=== PATIENT | female | born 1935 ===

== ENCOUNTER 2017-04-25 12:03 | Inpatient (IN) | payer MEDICARE, OTHER ==
[2017-04-25] MEDS ORDERED: Sodium Chloride 0.9% 1,000 ML IV STA (12:23)
--- NOTE | 2017-04-25 12:35 | ED PDOC ---
HPI: Abdomen Time Seen by Provider: 04/25/17 12:16 Chief Complaint (Nursing): Abdominal Pain Chief Complaint (Provider): Abdominal pain History Per: Patient History/Exam Limitations: no limitations Onset/Duration Of Symptoms: Intermittent Episodes, Worse Since (3 days) Current Symptoms Are (Timing): Still Present Location Of Pain/Discomfort: RUQ Associated Symptoms: denies: Fever, Vomiting, Diarrhea, Chest Pain Additional History Per: Patient Additional Complaint(s): 81yo female, with history of hypertension, diabetes, parkinsons disease, colon cancer, arthritis, depression, presents to ED with complaints of right upper quadrant pain, ongoing intermittently for the past several months but worse over the last several days. Patient states she has a history of galbladder problems however she has not had any interventions. She denies any vomiting, diarrhea, fever, changes in skin color, cough, shortness of breath or dizziness. She has no other medical complaints. Past Medical History Reviewed: Historical Data, Nursing Documentation, Vital Signs Vital Signs: Last Vital Signs Temp 98.8 F 04/27/17 07:49 Pulse 68 04/27/17 07:49 Resp 19 04/27/17 07:49 BP 158/68 H 04/27/17 07:49 Pulse Ox 96 04/27/17 07:49 - Medical History PMH: Anxiety, Arthritis (R knee), Back Problems, Dementia, Depression, Diabetes (type II), HTN, Hypercholesterolemia, Osteoporosis, Parkinson's Disease Denies: HIV, Chronic Kidney Disease - Surgical History Surgical History: Appendectomy Other surgeries: partial colectomy, ovarian cyst removal - Family History Family History: States: Unknown Family Hx - Home Medications Home Medications: Ambulatory Orders Medication Instructions Recorded Carbidopa/Levodopa 25/100 mg 1 tab PO TID 07/08/15 [Sinemet] Donepezil [Aricept] 10 mg PO DAILY 07/08/15 Escitalopram [Lexapro] 10 mg PO DAILY 07/08/15 clonazePAM [Klonopin] 1 mg PO BID 07/08/15 Sertraline [Zoloft] 50 mg PO HS 10/24/15 Alendronate Sodium 70 mg PO QWK 01/09/16 Diclofenac Sodium [Voltaren] 1 gm TOP TID 01/09/16 Hydrochlorothiazide [Microzide] 12.5 mg PO DAILY 12/02/16 Lubiprostone [Amitiza] 24 mcg PO DAILY 01/09/16 Omeprazole 20 mg PO DAILY 01/09/16 Amoxicillin/Clavulanate [Augmentin 1 tab PO Q12 #10 tab 01/12/16 875 MG-125 MG] Meclizine [Meclizine*] 25 mg PO TID #0 tab 01/12/16 Valsartan [Diovan] 160 mg PO DAILY #0 tab 01/12/16 - Allergies Allergies/Adverse Reactions: Allergies Allergy/AdvReac Type Severity Reaction Status Date / Time No Known Allergies Allergy Verified 04/25/17 12:13 Review of Systems ROS Statement: Except As Marked, All Systems Reviewed And Found Negative Constitutional: Negative for: Fever Respiratory: Negative for: Shortness of Breath Gastrointestinal: Positive for: Abdominal Pain. Negative for: Vomiting, Diarrhea Skin: Negative for: Other (changes in color) Neurological: Negative for: Dizziness Physical Exam - Reviewed Nursing Documentation Reviewed: Yes Vital Signs Reviewed: Yes - Physical Exam Appears: Positive for: Non-toxic (elderly female, dehydrated appearing) Skin: Positive for: Normal Color, Warm Eye Exam: Positive for: Normal appearance Neck: Positive for: Supple Cardiovascular/Chest: Positive for: Regular Rate, Rhythm Respiratory: Positive for: Normal Breath Sounds Gastrointestinal/Abdominal: Positive for: Soft, Tenderness (right upper quadrant ) Back: Positive for: Normal Inspection Extremity: Positive for: Normal ROM Neurologic/Psych: Positive for: Alert, Oriented. Negative for: Motor/Sensory Deficits - Laboratory Results Result Diagrams: 04/26/17 08:36 04/27/17 10:04 - ECG O2 Sat by Pulse Oximetry: 96 (RA) Pulse Ox Interpretation: Normal Medical Decision Making Medical Decision Making: Impression: Workup for right upper quadrant pain Prior notes form 2016 reviewed, revealing a CT scan which showed cholelithiasis with mild dilation of the CBD. Plan: -- Labs -- US Abdomen -- Pain medication -- Gentle IV fluids Scribe Attestation: Documented by Lisa Shipman, acting as a scribe for Gunner Martinez DO. Provider Scribe Attestation: All medical record entries made by the Scribe were at my direction and personally dictated by me. I have reviewed the chart and agree that the record accurately reflects my personal performance of the history, physical exam, medical decision making, and the department course for this patient. I have also personally directed, reviewed, and agree with the discharge instructions and disposition. Disposition - Clinical Impression Clinical Impression: Cholecystitis, Cholelithiasis - Disposition Disposition: Transfer of Care Disposition Time: 19:00 Condition: FAIR Patient Signed Over To: Osmani Stringer Handoff Comments: pending CT/ dispo
[2017-04-25 13:24] LABS: BASO % 0.5 % (0.0-2.0); EOS # 0.3 K/uL (0.0-0.7); EOS % 2.8 % (0.0-4.0); HEMOGLOBIN 13.5 g/dL (12.0-16.0); LYMPH # 1.8 K/uL (1.0-4.3); LYMPH % 17.4 % (20.0-40.0); MEAN CELL VOLUME 96.1 fl (81.0-99.0); MEAN CORPUSCULAR HEMOGLOBIN 33.1 pg (27.0-31.0); MEAN CORPUSCULAR HGB CONC 34.5 g/dL (33.0-37.0); MEAN PLATELET VOLUME 10.1 fl (7.2-11.7); MONO % 9.5 % (0.0-10.0); NEUT # 7.1 K/uL (1.8-7.0); NEUT % 69.8 % (50.0-75.0); NRBC % 0.1 % (0.0-0.0); RBC 4.07 Mil/uL (3.80-5.20); WHITE BLOOD COUNT 10.2 K/uL (4.8-10.8)
[2017-04-25 14:43] LABS: URINE BILIRUBIN NEGATIVE (NEGATIVE); URINE BLOOD NEGATIVE (NEGATIVE); URINE CLARITY SLIGHTY-CLOUDY (Clear); URINE COLOR YELLOW (YELLOW); URINE GLUCOSE (UA) NEG (Normal); URINE LEUKOCYTE ESTERASE NEG Leu/uL (Negative); URINE PROTEIN NEGATIVE (NEGATIVE)
--- NOTE | 2017-04-25 15:02 | US ---
HISTORY: RUQ pain COMPARISON: Abdomen Pelvis CT without contrast 01/09/2016 and limited Abdomen Ultrasound exam 07/08/2015. TECHNIQUE: Sonographic evaluation of the abdomen. FINDINGS: LIVER: Measures 16.1 cm. Normal echogenicity of the liver parenchyma. No mass. No intrahepatic bile duct dilatation. GALLBLADDER: Prominent sludge is seen layering in the dependent gallbladder with underlying lesion not excluded. Pattern is likely increased in the interval. COMMON BILE DUCT: Measures 7.8 mm mm. The proximal CBD is mildly dilated once again with the common hepatic duct measuring 9.2 mm. No choledocholithiasis appreciable. PANCREAS: The tail of the pancreas is obscured by overlying bowel gas with remainder unremarkable. RIGHT KIDNEY: Measures 11.0 x 3.6 x 4.7cm. A large simple cyst is exophytic off the upper midpole right kidney measuring 7.0 x 6.6 x 6.2 cm, slightly larger in the interval. LEFT KIDNEY: Measures 12.7 x 5.2 x 5.2cm. Normal echogenicity. No calculus, mass, or hydronephrosis. SPLEEN: Normal in size and contour. No mass. AORTA: No aneurysmal dilatation. IVC: Unremarkable. OTHER FINDINGS: None. IMPRESSION: Increase layering sludge in the dependent gallbladder with the gallbladder otherwise unremarkable. Underlying lesions are not excluded in the dependent gallbladder. Stable mild prominent common bile duct dilatation. Mild increase in size and simple cysts related to the right kidney. Partial obscuring of the pancreas by overlying bowel gas.
[2017-04-25 15:29] LABS: LIPASE 116 U/L (23-300)
[2017-04-25 16:08] LABS: ALBUMIN 3.7 g/dL (3.5-5.0); ALT/SGPT 33 U/L (9-52); AST/SGOT 75 U/L (14-36); BLOOD UREA NITROGEN 22 mg/dl (7-17); CALCIUM 9.5 mg/dL (8.4-10.2); GFR AFRICAN-AMERICAN > 60; GFR NON-AFRICAN AMERICAN > 60
[2017-04-25] MEDS ORDERED: Iohexol 240 (50 ml) PO ONE (17:22)
[2017-04-25] MEDS ORDERED: Iohexol 240 (50 ml) ONE (17:53)
[2017-04-25] MEDS ORDERED: Sodium Chloride 0.9% 100 ML ONE (19:37)
[2017-04-25] MEDS ORDERED: Iohexol 300 100 ML IJ ONE (19:37)
--- NOTE | 2017-04-25 20:10 | ED PDOC ---
- Laboratory Results Result Diagrams: 04/25/17 13:10 04/25/17 15:06 - ECG O2 Sat by Pulse Oximetry: 96 (RA) Pulse Ox Interpretation: Normal Medical Decision Making Medical Decision Making: Time: 19:00 Patient was signed out to me by Dr. Martinez pending CT and reevaluation. Time: 22:26 EXAM: CT Abdomen and Pelvis With Intravenous Contrast FINDINGS: Lower thorax: The heart is mildly enlarged. There is a hiatal hernia. There is subsegmental atelectasis and scarring at the lung bases. There is dependent atelectasis at the lung bases. There is more focal airspace disease at the left base. There are no effusions there is a granuloma in the right middle lobe ABDOMEN: Liver: There is fatty infiltration of the liver. There is a small hepatic cyst. There additional low-attenuation hepatic lesions too small to accurately characterize. There is a small granuloma in the liver. Gallbladder and bile ducts: Gallbladder is distended, almost 9 cm in length. There are multiple dependent layering stones. Common duct is dilated, 13 mm in diameter. There is mild intrahepatic biliary ductal dilatation Pancreas: Pancreas is mildly atrophic. Pancreatic duct is mildly prominent, 3.7 mm in diameter in the midportion of the pancreas. Spleen: unremarkable Adrenals: There is thickening of the right adrenal. There is nodular thickening of the left adrenal. Kidneys and ureters: There is a right renal cyst. Kidneys and ureters are otherwise unremarkable. Stomach and bowel: Stomach is almost completely empty. There is a duodenal diverticulum. Rotation is normal. There are mildly distended jejunal loops in the left upper quadrant. There is contrast and air throughout the small bowel. There is no small bowel obstruction. Terminal ileum is unremarkable. Appendix is not visualized.There is no pericecal inflammation. There is moderately large amount of stool in the right and transverse colon. There is been partial sigmoid resection. There is a colon anastomosis in the left lower quadrant. There is mild distention at the anastomotic site. There is a fecal bolus in the rectum. Appendix: See stomach and bowel PELVIS: Bladder: unremarkable Reproductive: Uterus and adnexal structures are unremarkable. ABDOMEN and PELVIS: Intraperitoneal space: .There is no free air or free fluid. Bones/joints: Bony structures are osteopenic.There are degenerative changes in the osseus structures. Soft tissues: There is a small fat containing umbilical hernia. There are calcified granulomas in the buttocks. Vasculature: There are vascular calcifications. There are calcified phleboliths. Lymph nodes: There is no pathologic adenopathy. Other findings: . IMPRESSION: Distended gallbladder with multiple stones and dilated intra-and extrahepatic biliary ducts, hepatobiliary scan suggested if there is suspicion for acute cholecystitis; prominent pancreatic duct in the midportion of the pancreas, distal obstructing lesion cannot be excluded; mild cardiomegaly and atherosclerotic disease; probable mild ileus, no obstruction; constipation; prior partial sigmoid resection; fecal impaction Additional nonemergent findings as described above. Time: 22:50 Patient will be admitted for acute chloecystitis . Case was discussed with Dr. Brooklynn MD vocational rehabilitation counselor. Scribe Attestation: Documented by Ten Leary, acting as a scribe for Osmani Stringer MD Provider Scribe Attestation: All medical record entries made by the Scribe were at my direction and personally dictated by me. I have reviewed the chart and agree that the record accurately reflects my personal performance of the history, physical exam, medical decision making, and the department course for this patient. I have also personally directed, reviewed, and agree with the discharge instructions and disposition. Disposition - Clinical Impression Clinical Impression: Cholecystitis, Cholelithiasis - POA Present On Arrival: None - Disposition Disposition: Admitted as In-Patient Disposition Time: 22:50 Condition: FAIR
--- NOTE | 2017-04-25 22:27 | CT ---
EXAM: CT Abdomen and Pelvis With Intravenous Contrast EXAM DATE/TIME: 04/25/2017 5:22 PM CLINICAL HISTORY: 81 years old, female; Pain; Abdominal pain; Flank; Right upper quadrant (ruq); Additional info: Upper abdominal pain TECHNIQUE: Axial computed tomography images of the abdomen and pelvis with intravenous contrast. All CT scans at this facility use one or more dose reduction techniques, viz.: automated exposure control; ma/kV adjustment per patient size (including targeted exams where dose is matched to indication; i.e. head); or iterative reconstruction technique. Coronal and sagittal reformatted images were created and reviewed. CONTRAST: 95 mL of omnipaque administered intravenously. COMPARISON: CT - ABD PELVIS W/O PO OR IV CONT 2016-01-09 15:47 FINDINGS: Lower thorax: The heart is mildly enlarged. There is a hiatal hernia. There is subsegmental atelectasis and scarring at the lung bases. There is dependent atelectasis at the lung bases. There is more focal airspace disease at the left base. There are no effusions there is a granuloma in the right middle lobe ABDOMEN: Liver: There is fatty infiltration of the liver. There is a small hepatic cyst. There additional low-attenuation hepatic lesions too small to accurately characterize. There is a small granuloma in the liver. Gallbladder and bile ducts: Gallbladder is distended, almost 9 cm in length. There are multiple dependent layering stones. Common duct is dilated, 13 mm in diameter. There is mild intrahepatic biliary ductal dilatation Pancreas: Pancreas is mildly atrophic. Pancreatic duct is mildly prominent, 3.7 mm in diameter in the midportion of the pancreas. Spleen: unremarkable Adrenals: There is thickening of the right adrenal. There is nodular thickening of the left adrenal. Kidneys and ureters: There is a right renal cyst. Kidneys and ureters are otherwise unremarkable. Stomach and bowel: Stomach is almost completely empty. There is a duodenal diverticulum. Rotation is normal. There are mildly distended jejunal loops in the left upper quadrant. There is contrast and air throughout the small bowel. There is no small bowel obstruction. Terminal ileum is unremarkable. Appendix is not visualized.There is no pericecal inflammation. There is moderately large amount of stool in the right and transverse colon. There is been partial sigmoid resection. There is a colon anastomosis in the left lower quadrant. There is mild distention at the anastomotic site. There is a fecal bolus in the rectum. Appendix: See stomach and bowel PELVIS: Bladder: unremarkable Reproductive: Uterus and adnexal structures are unremarkable. ABDOMEN and PELVIS: Intraperitoneal space: .There is no free air or free fluid. Bones/joints: Bony structures are osteopenic.There are degenerative changes in the osseus structures. Soft tissues: There is a small fat containing umbilical hernia. There are calcified granulomas in the buttocks. Vasculature: There are vascular calcifications. There are calcified phleboliths. Lymph nodes: There is no pathologic adenopathy. Other findings: . IMPRESSION: Distended gallbladder with multiple stones and dilated intra-and extrahepatic biliary ducts, hepatobiliary scan suggested if there is suspicion for acute cholecystitis; prominent pancreatic duct in the midportion of the pancreas, distal obstructing lesion cannot be excluded; mild cardiomegaly and atherosclerotic disease; probable mild ileus, no obstruction; constipation; prior partial sigmoid resection; fecal impaction Additional nonemergent findings as described above.
[2017-04-25] MEDS ORDERED: Ciprofloxacin 400mg/200ml D5W 400 MG/200 ML BAG IV STA (22:52)
[2017-04-25] MEDS ORDERED: metroNIDAZOLE 500mg/100ml NS 100 ML IVPB STA (22:53)
[2017-04-25] MEDS ORDERED: metroNIDAZOLE 500mg/100ml NS 100 ML IVPB ONE (23:15)
[2017-04-26] MEDS ORDERED: Sodium Chloride 0.9% 500 ML IV SCH (03:30)
--- NOTE | 2017-04-26 06:09 | CP.PCM.CON ---
Addendum entered and electronically signed by Thomas Muñiz DO 04/26/17 09:18: Patient to undergo MRCP - OR tentatively for 04/27 depending on result - Patient will need medical clearance Gian Muñiz PGY2 Original Note: <Tomer Hamilton - Last Filed: 04/26/17 08:03> History of Present Illness - History of Present Illness History of Present Illness: 80yo F with PMHx of colon cancer s/p resection, HTN, DM, Parkinsons presents to [facility] ED with complaints of RUQ pain. The pain began early in the morning and is located mostly in the RUQ. Patient reports feeling nauseous but denies any bouts of emesis. Patient reports eating makes RUQ pain worse. She denies CP, SOB , diarrhea, constipation, urinary symptoms, fever. Patient reports chills. PMHx: as stated above Surgeries: colon resection,ovarian cyst removal, tubal ligation, appendectomy Allergies: none Fam Hx: non-contributory Review of Systems - Review of Systems Review of Systems: 12 pt ROS carried out, unremarkable, except as stated in HPI Past Patient History - Past Medical History & Family History Past Medical History?: Yes - Past Social History Smoking Status: Never Smoked - CARDIAC Hx Cardiac Disorders: Yes Hx Hypercholesterolemia: Yes Hx Hypertension: Yes - PULMONARY Hx Respiratory Disorders: Yes Hx Asthma: Yes - NEUROLOGICAL Hx Neurological Disorder: Yes Hx Parkinson's Disease: Yes - HEENT Hx HEENT Problems: Yes Hx Cataracts: Yes - RENAL Hx Chronic Kidney Disease: No - ENDOCRINE/METABOLIC Hx Endocrine Disorders: Yes - HEMATOLOGICAL/ONCOLOGICAL Hx Blood Disorders: No Hx Human Immunodeficiency Virus (HIV): No - INTEGUMENTARY Hx Dermatological Problems: Yes Hx Psoriasis: Yes - MUSCULOSKELETAL/RHEUMATOLOGICAL Hx Musculoskeletal Disorders: Yes Hx Arthritis: Yes (R knee) Hx Falls: No Hx Osteoporosis: Yes - GASTROINTESTINAL Hx Gastrointestinal Disorders: Yes Hx Constipation: Yes Hx Gastritis: Yes - GENITOURINARY/GYNECOLOGICAL Hx Genitourinary Disorders: Yes Hx Incontinence: Yes - PSYCHIATRIC Hx Psychophysiologic Disorder: Yes Hx Anxiety: Yes Hx Depression: Yes Hx Substance Use: No - SURGICAL HISTORY Hx Surgeries: Yes Hx Appendectomy: Yes Hx Cholecystectomy: Yes - ANESTHESIA Hx Anesthesia: Yes Hx Anesthesia Reactions: No Hx Malignant Hyperthermia: No Meds Allergies/Adverse Reactions: Allergies Allergy/AdvReac Type Severity Reaction Status Date / Time No Known Allergies Allergy Verified 04/25/17 12:13 - Medications Medications: Current Medications Sodium Chloride (Sodium Chloride 0.9%) 500 mls @ 100 mls/hr IV .Q5H ALTHEA Last Admin: 04/26/17 04:23 Dose: Not Given Morphine Sulfate (Morphine) 2 mg IVP Q4 PRN PRN Reason: Pain, severe (8-10) Ondansetron HCl (Zofran Inj) 4 mg IVP Q6 PRN PRN Reason: Nausea/Vomiting Pneumococcal Polyvalent Vaccine (Pneumovax 23 Vaccine) 0.5 ml IM .ONCE ONE Stop: 04/26/17 09:01 Physical Exam - Constitutional Appears: No Acute Distress - Head Exam Head Exam: NORMOCEPHALIC - Eye Exam Eye Exam: Normal appearance - ENT Exam ENT Exam: Mucous Membranes Moist - Respiratory Exam Respiratory Exam: NORMAL BREATHING PATTERN - Cardiovascular Exam Cardiovascular Exam: +S1, +S2 - GI/Abdominal Exam GI & Abdominal Exam: Soft, Tenderness Additional comments: mild RUQ tenderness - Neurological Exam Neurological exam: Alert, Oriented x3 - Psychiatric Exam Psychiatric exam: Normal Mood - Skin Skin Exam: Dry, Intact, Warm Results - Vital Signs Recent Vital Signs: Last Vital Signs Temp 98.5 F 04/26/17 00:25 Pulse 91 H 04/26/17 01:10 Resp 18 04/26/17 01:10 BP 128/73 04/26/17 00:25 Pulse Ox 96 04/26/17 01:10 - Labs Result Diagrams: 04/25/17 13:10 04/25/17 15:06 Labs: Laboratory Results - last 24 hr 04/25/17 04/25/17 04/25/17 13:10 13:35 15:06 WBC 10.2 RBC 4.07 Hgb 13.5 Hct 39.1 MCV 96.1 D MCH 33.1 H MCHC 34.5 RDW 15.0 H Plt Count 298 D MPV 10.1 Neut % (Auto) 69.8 Lymph % (Auto) 17.4 L [place] % (Auto) 9.5 Eos % (Auto) 2.8 Baso % (Auto) 0.5 Neut # (Auto) 7.1 H Lymph # (Auto) 1.8 [place] # (Auto) 1.0 H Eos # (Auto) 0.3 Baso # (Auto) 0.0 Sodium 141 Potassium 4.4 Chloride 104 Carbon Dioxide 26 Anion Gap 15 BUN 22 H Creatinine 0.6 L Est GFR ( Amer) > 60 Est GFR (Non-Af Amer) > 60 Random Glucose 100 Lactic Acid Calcium 9.5 Total Bilirubin 0.4 AST 75 H ALT 33 Alkaline Phosphatase 80 Total Protein 7.4 Albumin 3.7 Globulin 3.7 Albumin/Globulin Ratio 1.0 Lipase 116 Urine Color Yellow Urine Clarity Slighty-cloudy Urine pH 5.0 Ur Specific Miller 1.024 Urine Protein Negative Urine Glucose (UA) Neg Urine Ketones Trace Urine Blood Negative Urine Nitrate Negative Urine Bilirubin Negative Urine Urobilinogen 2.0 H Ur Leukocyte Esterase Neg Urine RBC (Auto) 6 H Urine Microscopic WBC 2 04/25/17 23:56 WBC RBC Hgb Hct MCV MCH MCHC RDW Plt Count MPV Neut % (Auto) Lymph % (Auto) [place] % (Auto) Eos % (Auto) Baso % (Auto) Neut # (Auto) Lymph # (Auto) [place] # (Auto) Eos # (Auto) Baso # (Auto) Sodium Potassium Chloride Carbon Dioxide Anion Gap BUN Creatinine Est GFR ( Amer) Est GFR (Non-Af Amer) Random Glucose Lactic Acid 0.7 Calcium Total Bilirubin AST ALT Alkaline Phosphatase Total Protein Albumin Globulin Albumin/Globulin Ratio Lipase Urine Color Urine Clarity Urine pH Ur Specific Miller Urine Protein Urine Glucose (UA) Urine Ketones Urine Blood Urine Nitrate Urine Bilirubin Urine Urobilinogen Ur Leukocyte Esterase Urine RBC (Auto) Urine Microscopic WBC Assessment & Plan - Assessment and Plan (Free Text) Assessment: 81F w/ biliary colic Plan: NPO IVF Analgesic Anti-emetic F/u MRCP Discussed with Dr. Chelita Tee PGY2 <Alexey Merlos - Last Filed: 04/27/17 21:44> Meds - Medications Medications: Current Medications Carbidopa/Levodopa (Sinemet) 1 tab PO TID [facility] Last Admin: 04/27/17 16:57 Dose: 1 tab Clonazepam (Klonopin) 1 mg PO Q12H [facility] Last Admin: 04/27/17 21:15 Dose: 1 mg Donepezil HCl (Aricept) 10 mg PO DAILY [facility] Last Admin: 04/27/17 11:41 Dose: 10 mg Escitalopram Oxalate (Lexapro) 10 mg PO DAILY [facility] Last Admin: 04/27/17 11:41 Dose: 10 mg Sodium Chloride (Sodium Chloride 0.9%) 500 mls @ 100 mls/hr IV .Q5H [facility] Last Admin: 04/26/17 04:23 Dose: Not Given Ciprofloxacin (Cipro 400mg/200ml Dsw) 400 mg in 200 mls @ 200 mls/hr IVPB Q12 ALTHEA PRN Reason: Protocol Last Admin: 04/27/17 20:28 Dose: 200 mls/hr Metronidazole (Flagyl 500mg/100ml Ns) 100 mls @ 100 mls/hr IVPB Q8 ALTHEA PRN Reason: Protocol Last Admin: 04/27/17 16:57 Dose: 100 mls/hr Morphine Sulfate (Morphine) 2 mg IVP Q4 PRN PRN Reason: Pain, severe (8-10) Ondansetron HCl (Zofran Inj) 4 mg IVP Q6 PRN PRN Reason: Nausea/Vomiting Valsartan (Diovan) 160 mg PO DAILY [facility] Last Admin: 04/27/17 11:41 Dose: 160 mg Results - Vital Signs Recent Vital Signs: Last Vital Signs Temp 98.2 F 04/27/17 15:52 Pulse 75 04/27/17 15:52 Resp 20 04/27/17 15:52 BP 128/72 04/27/17 15:52 Pulse Ox 94 L 04/27/17 15:52 - Labs Result Diagrams: 04/26/17 08:36 04/27/17 10:04 Labs: Laboratory Results - last 24 hr 04/27/17 04/27/17 04/27/17 05:45 10:04 11:05 Sodium 143 Potassium 3.8 Chloride 102 Carbon Dioxide 26 Anion Gap 19 BUN 12 Creatinine 0.6 L Est GFR ( Amer) > 60 Est GFR (Non-Af Amer) > 60 POC Glucose (mg/dL) 100 134 H Random Glucose 142 H Calcium 8.9 Total Bilirubin 0.8 AST 41 H D ALT 37 Alkaline Phosphatase 52 Total Protein 7.8 Albumin 3.8 Globulin 4.0 H Albumin/Globulin Ratio 1.0 04/27/17 04/27/17 15:20 21:11 Sodium Potassium Chloride Carbon Dioxide Anion Gap BUN Creatinine Est GFR ( Amer) Est GFR (Non-Af Amer) POC Glucose (mg/dL) 144 H 166 H Random Glucose Calcium Total Bilirubin AST ALT Alkaline Phosphatase Total Protein Albumin Globulin Albumin/Globulin Ratio Attending/Attestation - Attestation I have personally seen and examined this patient.: Yes I have fully participated in the care of the patient.: Yes I have reviewed all pertinent clinical information: Yes Notes (Text): Pt was seen and examined at bedside Agree with above note and assessment Pt with RUQ pain and PMH of Cholelithiasis Epigastric and RUQ tenderness Labs and radiology reviewed Ass: Cholelithiasis with chronic cholecystitis with dilated CBD Plan: IV antibiotics MRCP NPO, IVF Medical clearance Plan d.w pt in detail Risk and benefit explained in detail.
[2017-04-26] MEDS ORDERED: Dextrose 5%/0.45% NS 1,000 ML IV SCH (06:30)
[2017-04-26] MEDS: metroNIDAZOLE 500mg/100ml NS 100 ML IVPB SCH ×2 (08:28→17:37)
[2017-04-26] MEDS: Ciprofloxacin 400mg/200ml D5W 400 MG/200 ML BAG IVPB SCH ×2 (08:30→20:53)
--- NOTE | 2017-04-26 08:56 | CARD ---
APPROVED REPORT EKG Measurement Heart [id number] <Conclusion> Normal sinus rhythm Possible Left atrial enlargement Left bundle branch block Abnormal ECG
[2017-04-26] MEDS ORDERED: Pneumococcal 23-Valent Vaccine IM ONE (09:00)
--- NOTE | 2017-04-26 09:01 | HP ---
HISTORY OF PRESENT ILLNESS: Ms. Bolden is an 81-year-old female who was admitted via the Emergency Room because of complaints of right upper quadrant abdominal pain, which has been intermittent for the past several months, but worse several days prior to presentation. She denies nausea, vomiting or diarrhea. In the Emergency Room, part of her evaluation was CAT scan and ultrasound of the abdomen, which was compatible with gallbladder disease. PAST MEDICAL HISTORY: She has a past medical history of hypertension, diabetes mellitus, Parkinson's disease, and history of colon cancer in the past. She also has arthritis and depression. She is unable to give much more history. FAMILY HISTORY: Noncontributory. SOCIAL HISTORY: Socially, she denies smoking, alcohol use. Has a supportive daughter. REVIEW OF SYSTEMS: Essentially unremarkable. PHYSICAL EXAMINATION: GENERAL: The patient is alert, somewhat oriented to person, place and time. VITAL SIGNS: Blood pressure of 130/68 with the pulse of 65, respiratory rate of 18. She is febrile. O2 sat is 94% on room air. SKIN: Shows fair turgor. HEENT: Pupils are equal and reactive to light and accommodation. Mouth shows fair hygiene. JVP flat. LUNGS: Clear. BREASTS: Normal. HEART: Regular. No murmurs or gallop. ABDOMEN: Soft, with midepigastric and right upper quadrant tenderness. No rebound. Normoactive bowel sounds. No organomegaly appreciated. EXTREMITIES: Shows no edema or cyanosis. CENTRAL NERVOUS SYSTEM: Exam is only remarkable for tremors and Parkinson's disease, otherwise, unremarkable. LABORATORY DATA: WBC 10.2, hemoglobin 13.5, and platelet count 298,000. Sodium of 141, potassium of 4.4, BUN of 22, creatinine of 0.6, AST of 75, and ALT of 33. Lipase of 116. Ultrasound of abdomen is remarkable for increased layer of sludge and dependent gallbladder with stable mild prominent common bile duct and underlying lesions are not excluded in the dependent gallbladder. CT scan of abdomen and pelvis is remarkable for distended gallbladder with multiple stones and dilated intra and extra biliary ducts. Hepatobiliary scan suggested there is suspicion of acute cholecystitis, prominent pancreatic duct in the midportion of the pancreas, at this time obstructive lesions cannot be excluded, mild cardiomegaly and atherosclerotic disease, probable mild ileus, no obstruction, constipation, prior partial sigmoid resection, fecal impaction. IMPRESSION: Acute cholecystis and cholelithiasis, history of diabetes, history of hypertension, and history of Parkinson's disease. PLAN: Intravenous hydration, intravenous antibiotic therapy, consultation with both surgical and gastroenterology team. In view of the patient's age, conservative management by at this point. We will continue therapy as ordered and analgesics for pain will be given. Case will be discussed with the patient's daughter and we will hold all home medications for now. Romulo Liu MD
[2017-04-26 09:07] LABS: BASO % 0.5 % (0.0-2.0); EOS # 0.4 K/uL (0.0-0.7); EOS % 4.7 % (0.0-4.0); HEMOGLOBIN 12.9 g/dL (12.0-16.0); LYMPH # 2.3 K/uL (1.0-4.3); LYMPH % 25.2 % (20.0-40.0); MEAN CELL VOLUME 97.2 fl (81.0-99.0); MEAN CORPUSCULAR HEMOGLOBIN 33.3 pg (27.0-31.0); MEAN CORPUSCULAR HGB CONC 34.3 g/dL (33.0-37.0); MEAN PLATELET VOLUME 9.4 fl (7.2-11.7); MONO # 1.1 K/uL (0.0-0.8); MONO % 12.4 % (0.0-10.0); NEUT # 5.2 K/uL (1.8-7.0); NEUT % 57.2 % (50.0-75.0); RBC 3.86 Mil/uL (3.80-5.20)
[2017-04-26 09:19] LABS: BLOOD UREA NITROGEN 15 mg/dl (7-17); CALCIUM 8.7 mg/dL (8.4-10.2); GFR AFRICAN-AMERICAN > 60; GFR NON-AFRICAN AMERICAN > 60
--- NOTE | 2017-04-26 09:48 | RAD ---
PROCEDURE: CHEST RADIOGRAPH, 1 VIEW HISTORY: cholecystitis COMPARISON: Portable chest 01/10/2016. FINDINGS: LUNGS: The patient is rotated toward the left. The obscures hilar vascular markings bilaterally somewhat. No interval infiltrate identified bilaterally. Costochondral calcifications are accentuated at the left base. Improved inspiratory volume. PLEURA: No pneumothorax or pleural fluid seen. CARDIOVASCULAR: Stable cardiac silhouette. No pulmonary vascular derangement grossly evident. OSSEOUS STRUCTURES: No significant abnormalities. VISUALIZED UPPER ABDOMEN: Normal. OTHER FINDINGS: None. IMPRESSION: No interval acute cardiopulmonary disease appreciable. Improved inspiratory volume.
[2017-04-26] MEDS ORDERED: Influenza Vaccine 18yr & older 0.5 ML/45 MCG SYR IM ONE (12:45)
[2017-04-26] MEDS ORDERED: Gadodiamide 287 MG/ML VIAL (15ML) IV ONE (15:12)
[2017-04-26 21:03] LABS: PROTHROMBIN TIME 12.7 Seconds (9.8-13.1)
[2017-04-26 21:04] LABS: INR 1.1 (0.9-1.2); PARTIAL THROMBOPLASTIN TIME 34.1 Seconds (25.6-37.1)
[2017-04-27] MEDS: metroNIDAZOLE 500mg/100ml NS 100 ML IVPB SCH ×3 (00:20→16:57)
[2017-04-27] MEDS: Ciprofloxacin 400mg/200ml D5W 400 MG/200 ML BAG IVPB SCH ×2 (08:42→20:28)
--- NOTE | 2017-04-27 08:44 | CP.PCM.PN ---
<Mary Ryan - Last Filed: 04/27/17 08:42> Subjective - Date & Time of Evaluation Date of Evaluation: 04/27/17 Time of Evaluation: 08:42 - Subjective Subjective: General surgery - Dr. Merlos Pt S&ESilvia VIRK. Pt complains of mild pain in RUQ/Epigastric region and chills. No Nausea,vomiting, fevers, chest pain. Objective - Vital Signs/Intake and Output Vital Signs (last 24 hours): Temp Pulse Resp BP Pulse Ox 98.8 F 68 19 158/68 H 96 04/27/17 07:49 04/27/17 07:49 04/27/17 07:49 04/27/17 07:49 04/27/17 07:49 - Medications Medications: Current Medications Carbidopa/Levodopa (Sinemet) 1 tab PO TID [facility] Last Admin: 04/26/17 20:56 Dose: 1 tab Clonazepam (Klonopin) 1 mg PO Q12H [facility] Last Admin: 04/26/17 22:20 Dose: 1 mg Sodium Chloride (Sodium Chloride 0.9%) 500 mls @ 100 mls/hr IV .Q5H [facility] Last Admin: 04/26/17 04:23 Dose: Not Given Ciprofloxacin (Cipro 400mg/200ml Dsw) 400 mg in 200 mls @ 200 mls/hr IVPB Q12 [facility] PRN Reason: Protocol Last Admin: 04/26/17 20:53 Dose: 200 mls/hr Metronidazole (Flagyl 500mg/100ml Ns) 100 mls @ 100 mls/hr IVPB Q8 [facility] PRN Reason: Protocol Last Admin: 04/27/17 08:41 Dose: 100 mls/hr Morphine Sulfate (Morphine) 2 mg IVP Q4 PRN PRN Reason: Pain, severe (8-10) Ondansetron HCl (Zofran Inj) 4 mg IVP Q6 PRN PRN Reason: Nausea/Vomiting - Labs Labs: 04/26/17 08:36 04/26/17 08:36 PT 12.7 Seconds (9.8-13.1) 04/26/17 20:48 INR 1.1 (0.9-1.2) 04/26/17 20:48 APTT 34.1 Seconds (25.6-37.1) 04/26/17 20:48 - Constitutional Appears: No Acute Distress - Head Exam Head Exam: ATRAUMATIC, NORMAL INSPECTION, NORMOCEPHALIC - Respiratory Exam Respiratory Exam: NORMAL BREATHING PATTERN. absent: Respiratory Distress - GI/Abdominal Exam GI & Abdominal Exam: Soft, Tenderness (RUQ, mild). absent: Distended, Firm, Guarding - Neurological Exam Neurological Exam: Alert, Oriented x3 - Skin Skin Exam: Dry, Intact Assessment and Plan - Assessment and Plan (Free Text) Assessment: 81 yo F w/ choledocholithiasis -F/u GI for poss. ERCP -Repeat LFTs -Continue Pain control, Abx -Poss. cholecystectomy in next few days pending ERCP Dw Dr Merlos <Alexey Merlos - Last Filed: 04/27/17 21:45> Objective - Vital Signs/Intake and Output Vital Signs (last 24 hours): Temp Pulse Resp BP Pulse Ox 98.2 F 75 20 128/72 94 L 04/27/17 15:52 04/27/17 15:52 04/27/17 15:52 04/27/17 15:52 04/27/17 15:52 - Medications Medications: Current Medications Carbidopa/Levodopa (Sinemet) 1 tab PO TID [facility] Last Admin: 04/27/17 16:57 Dose: 1 tab Clonazepam (Klonopin) 1 mg PO Q12H [facility] Last Admin: 04/27/17 21:15 Dose: 1 mg Donepezil HCl (Aricept) 10 mg PO DAILY [facility] Last Admin: 04/27/17 11:41 Dose: 10 mg Escitalopram Oxalate (Lexapro) 10 mg PO DAILY [facility] Last Admin: 04/27/17 11:41 Dose: 10 mg Sodium Chloride (Sodium Chloride 0.9%) 500 mls @ 100 mls/hr IV .Q5H [facility] Last Admin: 04/26/17 04:23 Dose: Not Given Ciprofloxacin (Cipro 400mg/200ml Dsw) 400 mg in 200 mls @ 200 mls/hr IVPB Q12 [facility] PRN Reason: Protocol Last Admin: 04/27/17 20:28 Dose: 200 mls/hr Metronidazole (Flagyl 500mg/100ml Ns) 100 mls @ 100 mls/hr IVPB Q8 [facility] PRN Reason: Protocol Last Admin: 04/27/17 16:57 Dose: 100 mls/hr Morphine Sulfate (Morphine) 2 mg IVP Q4 PRN PRN Reason: Pain, severe (8-10) Ondansetron HCl (Zofran Inj) 4 mg IVP Q6 PRN PRN Reason: Nausea/Vomiting Valsartan (Diovan) 160 mg PO DAILY [facility] Last Admin: 04/27/17 11:41 Dose: 160 mg - Labs Labs: 04/26/17 08:36 04/27/17 10:04 PT 12.7 Seconds (9.8-13.1) 04/26/17 20:48 INR 1.1 (0.9-1.2) 04/26/17 20:48 APTT 34.1 Seconds (25.6-37.1) 04/26/17 20:48 Attending/Attestation - Attestation I have personally seen and examined this patient.: Yes I have fully participated in the care of the patient.: Yes I have reviewed all pertinent clinical information, including history, physical exam and plan: Yes Notes (Text): Pt was seen and examined at bedside Agree with above note and assessment Pt is improving clinically awaiting MRCP GI consult f.u Plan d.w pt in detail Risk and benefit explained in detail.
[2017-04-27 10:36] LABS: ALBUMIN 3.8 g/dL (3.5-5.0); ALT/SGPT 37 U/L (9-52); AST/SGOT 41 U/L (14-36); BLOOD UREA NITROGEN 12 mg/dl (7-17); CALCIUM 8.9 mg/dL (8.4-10.2); GFR AFRICAN-AMERICAN > 60; GFR NON-AFRICAN AMERICAN > 60
--- NOTE | 2017-04-27 11:16 | CP.PCM.PN ---
Subjective - Date & Time of Evaluation Date of Evaluation: 04/27/17 Time of Evaluation: 11:18 - Subjective Subjective: STILL HAS MILD ABDOMINAL PAINS TOLERATING CLEAR LIQUID DIET Objective - Vital Signs/Intake and Output Vital Signs (last 24 hours): Temp Pulse Resp BP Pulse Ox 98.8 F 68 19 158/68 H 96 04/27/17 07:49 04/27/17 07:49 04/27/17 07:49 04/27/17 07:49 04/27/17 07:49 - Medications Medications: Current Medications Carbidopa/Levodopa (Sinemet) 1 tab PO TID [facility] Last Admin: 04/27/17 09:21 Dose: 1 tab Clonazepam (Klonopin) 1 mg PO Q12H [facility] Last Admin: 04/27/17 09:21 Dose: 1 mg Clonazepam (Klonopin) 1 mg PO BID [facility] Donepezil HCl (Aricept) 10 mg PO DAILY [facility] Escitalopram Oxalate (Lexapro) 10 mg PO DAILY [facility] Sodium Chloride (Sodium Chloride 0.9%) 500 mls @ 100 mls/hr IV .Q5H [facility] Last Admin: 04/26/17 04:23 Dose: Not Given Ciprofloxacin (Cipro 400mg/200ml Dsw) 400 mg in 200 mls @ 200 mls/hr IVPB Q12 [facility] PRN Reason: Protocol Last Admin: 04/27/17 08:42 Dose: 200 mls/hr Metronidazole (Flagyl 500mg/100ml Ns) 100 mls @ 100 mls/hr IVPB Q8 [facility] PRN Reason: Protocol Last Admin: 04/27/17 08:41 Dose: 100 mls/hr Morphine Sulfate (Morphine) 2 mg IVP Q4 PRN PRN Reason: Pain, severe (8-10) Ondansetron HCl (Zofran Inj) 4 mg IVP Q6 PRN PRN Reason: Nausea/Vomiting Valsartan (Diovan) 160 mg PO DAILY [facility] - Labs Labs: 04/26/17 08:36 04/27/17 10:04 PT 12.7 Seconds (9.8-13.1) 04/26/17 20:48 INR 1.1 (0.9-1.2) 04/26/17 20:48 APTT 34.1 Seconds (25.6-37.1) 04/26/17 20:48 - Constitutional Appears: No Acute Distress - Head Exam Head Exam: ATRAUMATIC, NORMAL INSPECTION, NORMOCEPHALIC - Eye Exam Eye Exam: EOMI, Normal appearance, PERRL Pupil Exam: NORMAL ACCOMODATION, PERRL - ENT Exam ENT Exam: Mucous Membranes Moist, Normal Exam - Neck Exam Neck Exam: Full ROM, Normal Inspection. absent: Lymphadenopathy - Respiratory Exam Respiratory Exam: Clear to Ausculation Bilateral, NORMAL BREATHING PATTERN - Cardiovascular Exam Cardiovascular Exam: REGULAR RHYTHM, +S1, +S2. absent: Murmur - GI/Abdominal Exam GI & Abdominal Exam: Soft, Tenderness, Normal Bowel Sounds - Rectal Exam Rectal Exam: NORMAL INSPECTION - Extremities Exam Extremities Exam: Full ROM, Normal Capillary Refill, Normal Inspection. absent : Joint Swelling, Pedal Edema Additional comments: TREMORS - Back Exam Back Exam: NORMAL INSPECTION - Neurological Exam Neurological Exam: Alert, Awake, CN II-XII Intact, Normal Gait, Oriented x3 - Psychiatric Exam Psychiatric exam: Normal Affect, Normal Mood - Skin Skin Exam: Dry, Intact, Normal Color, Warm Assessment and Plan - Assessment and Plan (Free Text) Assessment: GALLBLADDER DZ PARKINSON'S DZ HTN ANXIETY WITH DEPRESSION Plan: FOR ERCP AND POSSIBLE CHOLECYSTECYTOMY
--- NOTE | 2017-04-27 12:57 | CON ---
DATE: 04/26/2017 REFERRING PHYSICIAN: Dr Liu REASON FOR CONSULTATION: Acute Cholecystitis HISTORY OF PRESENT ILLNESS: This is an 81-year-old female with history of hypertension, diabetes, Parkinson's, history of cholecystitis in the past comes in with abdominal pain and discomfort, which is clinically improving, but is still there. Denies any fevers or chills lying in bed comfortable, asking for food, in no apparent distress. PAST MEDICAL HISTORY: As above. PAST SURGICAL HISTORY: As above. MEDICATIONS: Have been reviewed. REVIEW OF SYSTEMS: All other systems have been reviewed and negative apart from the HPI. PHYSICAL EXAMINATION: VITAL SIGNS: During here in the hospital, grossly unremarkable. GENERAL: A pleasant elderly pink female, lying in bed comfortably, in no apparent distress. HEENT: Head, normocephalic and atraumatic. Eyes, pupils are equal, round, and reactive to light bilaterally. No conjunctival pallor or icterus. NECK: Supple. Normal range of motion. No lymphadenopathy appreciated. LUNGS: Coarse breath sounds bilaterally. HEART: S1 and S2, regular rate and rhythm. No murmurs appreciated. ABDOMEN: Soft and nontender, some discomfort in the . RECTAL: Deferred. EXTREMITIES: Pulses present bilaterally. SKIN: Warm, dry, and intact. NEUROLOGIC: A and O x3. LABORATORY DATA: All labs and radiology have been reviewed. WBC is 9.9, hemoglobin 12.9, and hematocrit 37.5. LFTs are completely unremarkable consistent with AST of 75. CAT scan shows gallbladder . ASSESSMENT AND PLAN: This is an 81-year-old female with what appears to be cholecystitis . MRCP is pending. Surgical consult appreciated. Thank you for this consult. Gunner Julien MD/ PhD cc:
--- NOTE | 2017-04-27 17:00 | MRI ---
PROCEDURE: Magnetic Resonance Cholangiopancreatography HISTORY: Dilated CBD COMPARISON: Comparison is made with the previous CT of the abdomen and pelvis with contrast dated 04/25/2017. TECHNIQUE: Multiplanar, multisequence MR images of the abdomen were obtained, including heavily T2 weighted MRCP images of the biliary system. Rotating maximum intensity projection images of the biliary system were generated. FINDINGS: MRCP: The common bile duct is mildly dilated measures up to 11 millimeter in the proximal portion. The distal portion of the CBD is normal in caliber and shape. No evidence of choledocholithiasis. No intrahepatic biliary ductal dilatation. LIVER: There is hyperintense T2 cyst seen at the right liver lobe measures 7 millimeter. No evidence of suspicious mass in the liver. The liver enhance homogeneously. Mild intrahepatic biliary ductal dilatation is noted. The portal vein is patent. GALLBLADDER: The gallbladder is distended contains multiple small gallstones. There is mild diffuse gallbladder wall thickening noted. No MRI evidence of acute cholecystitis. SPLEEN: Unremarkable. PANCREAS: The pancreas is grossly unremarkable. No evidence of enhancing mass lesion in the pancreas. The main pancreatic duct is not dilated. ADRENALS: Again noted is small nodule at the left adrenal gland measures 1 centimeters likely represent benign adenoma. This nodule has not significantly changed since the previous CT dated 01/09/2016. The right adrenal glands grossly unremarkable. KIDNEYS: Again seen is large cyst at the midpole right kidney measures 6.8 centimeter in the transverse diameter demonstrate no solid enhancing component. No evidence of hydronephrosis. The kidneys enhance symmetrically. AORTA: No aneurysm. ASCITES: None. OTHER FINDINGS: None. IMPRESSION: Mildly dilated common bile duct. No definite evidence of choledocholithiasis. Mild central intrahepatic biliary ductal dilatation. No evidence of suspicious mass in the liver and pancreas. Distended gallbladder demonstrates diffuse wall thickening and contains small cholelithiasis. No evidence of acute cholecystitis. Preliminary report was submitted by [facility].
[2017-04-28] MEDS: metroNIDAZOLE 500mg/100ml NS 100 ML IVPB SCH ×3 (00:11→17:00)
--- NOTE | 2017-04-28 07:41 | CP.PCM.PN ---
Subjective - Date & Time of Evaluation Date of Evaluation: 04/28/17 Time of Evaluation: 07:41 - Subjective Subjective: NERVOUS ABDOMINAL PAIN LESS TOLERATING LIQUID DIET NO NAUSEA/VOMITING/DIARRHEA Objective - Vital Signs/Intake and Output Vital Signs (last 24 hours): Temp Pulse Resp BP Pulse Ox 98.8 F 75 19 116/67 95 04/28/17 00:02 04/28/17 00:02 04/28/17 00:02 04/28/17 00:02 04/28/17 00:02 - Medications Medications: Current Medications Carbidopa/Levodopa (Sinemet) 1 tab PO TID [facility] Last Admin: 04/27/17 16:57 Dose: 1 tab Clonazepam (Klonopin) 1 mg PO Q12H [facility] Last Admin: 04/27/17 21:15 Dose: 1 mg Donepezil HCl (Aricept) 10 mg PO DAILY [facility] Last Admin: 04/27/17 11:41 Dose: 10 mg Escitalopram Oxalate (Lexapro) 10 mg PO DAILY [facility] Last Admin: 04/27/17 11:41 Dose: 10 mg Sodium Chloride (Sodium Chloride 0.9%) 500 mls @ 100 mls/hr IV .Q5H [facility] Last Admin: 04/26/17 04:23 Dose: Not Given Ciprofloxacin (Cipro 400mg/200ml Dsw) 400 mg in 200 mls @ 200 mls/hr IVPB Q12 [facility] PRN Reason: Protocol Last Admin: 04/27/17 20:28 Dose: 200 mls/hr Metronidazole (Flagyl 500mg/100ml Ns) 100 mls @ 100 mls/hr IVPB Q8 [facility] PRN Reason: Protocol Last Admin: 04/28/17 00:11 Dose: 100 mls/hr Morphine Sulfate (Morphine) 2 mg IVP Q4 PRN PRN Reason: Pain, severe (8-10) Ondansetron HCl (Zofran Inj) 4 mg IVP Q6 PRN PRN Reason: Nausea/Vomiting Valsartan (Diovan) 160 mg PO DAILY [facility] Last Admin: 04/27/17 11:41 Dose: 160 mg - Labs Labs: 04/26/17 08:36 04/27/17 10:04 PT 12.7 Seconds (9.8-13.1) 04/26/17 20:48 INR 1.1 (0.9-1.2) 04/26/17 20:48 APTT 34.1 Seconds (25.6-37.1) 04/26/17 20:48 - Constitutional Appears: No Acute Distress - Head Exam Head Exam: ATRAUMATIC, NORMAL INSPECTION, NORMOCEPHALIC - Eye Exam Eye Exam: EOMI, Normal appearance, PERRL Pupil Exam: NORMAL ACCOMODATION, PERRL - ENT Exam ENT Exam: Mucous Membranes Moist, Normal Exam - Neck Exam Neck Exam: Full ROM, Normal Inspection. absent: Lymphadenopathy - Respiratory Exam Respiratory Exam: Clear to Ausculation Bilateral, NORMAL BREATHING PATTERN - Cardiovascular Exam Cardiovascular Exam: REGULAR RHYTHM, +S1, +S2. absent: Murmur - GI/Abdominal Exam GI & Abdominal Exam: Soft, Normal Bowel Sounds. absent: Tenderness - Rectal Exam Rectal Exam: NORMAL INSPECTION - Extremities Exam Extremities Exam: Full ROM, Normal Capillary Refill, Normal Inspection. absent : Joint Swelling, Pedal Edema - Back Exam Back Exam: NORMAL INSPECTION - Neurological Exam Neurological Exam: Alert, Awake, CN II-XII Intact, Normal Gait, Oriented x3 - Psychiatric Exam Psychiatric exam: Normal Affect, Normal Mood - Skin Skin Exam: Dry, Intact, Normal Color, Warm Assessment and Plan - Assessment and Plan (Free Text) Assessment: ACUTE CHOLECYSTITIS/CHOLELITHIASIS ANXIETY WITH DEPRESSION PARKINSON'S DZ Plan: FOR ERCP IN AM FOR POSSIBLE CHOLECYSTECTOMY CONTINUE PRESENT RX
[2017-04-28 08:06] VITALS: RESP 20
[2017-04-28] MEDS: Ciprofloxacin 400mg/200ml D5W 400 MG/200 ML BAG IVPB SCH (08:23)
--- NOTE | 2017-04-28 09:04 | CP.PCM.PN ---
Subjective - Date & Time of Evaluation Date of Evaluation: 04/28/17 Time of Evaluation: 09:02 - Subjective Subjective: SURGERY NOTE FOR DR. CASANOVA 81F seen and examined at bedside. No acute events overnight. Patient resting comfortably. Pain controlled. Denies nauseu/vomtiing. Objective - Vital Signs/Intake and Output Vital Signs (last 24 hours): Temp Pulse Resp BP Pulse Ox 98.8 F 98 H 20 134/71 94 L 04/28/17 08:05 04/28/17 08:05 04/28/17 08:05 04/28/17 08:05 04/28/17 08:05 - Medications Medications: Current Medications Carbidopa/Levodopa (Sinemet) 1 tab PO TID [facility] Last Admin: 04/28/17 08:28 Dose: 1 tab Clonazepam (Klonopin) 1 mg PO Q12H [facility] Last Admin: 04/28/17 08:30 Dose: 1 mg Donepezil HCl (Aricept) 10 mg PO DAILY [facility] Last Admin: 04/28/17 08:28 Dose: 10 mg Escitalopram Oxalate (Lexapro) 10 mg PO DAILY [facility] Last Admin: 04/28/17 08:28 Dose: 10 mg Sodium Chloride (Sodium Chloride 0.9%) 500 mls @ 100 mls/hr IV .Q5H [facility] Last Admin: 04/26/17 04:23 Dose: Not Given Ciprofloxacin (Cipro 400mg/200ml Dsw) 400 mg in 200 mls @ 200 mls/hr IVPB Q12 [facility] PRN Reason: Protocol Last Admin: 04/28/17 08:23 Dose: 200 mls/hr Metronidazole (Flagyl 500mg/100ml Ns) 100 mls @ 100 mls/hr IVPB Q8 [facility] PRN Reason: Protocol Last Admin: 04/28/17 08:23 Dose: 100 mls/hr Morphine Sulfate (Morphine) 2 mg IVP Q4 PRN PRN Reason: Pain, severe (8-10) Ondansetron HCl (Zofran Inj) 4 mg IVP Q6 PRN PRN Reason: Nausea/Vomiting Valsartan (Diovan) 160 mg PO DAILY [facility] Last Admin: 04/28/17 08:28 Dose: 160 mg - Labs Labs: 04/26/17 08:36 04/27/17 10:04 PT 12.7 Seconds (9.8-13.1) 04/26/17 20:48 INR 1.1 (0.9-1.2) 04/26/17 20:48 APTT 34.1 Seconds (25.6-37.1) 04/26/17 20:48 - Constitutional Appears: Non-toxic, No Acute Distress - Respiratory Exam Respiratory Exam: Clear to Ausculation Bilateral, NORMAL BREATHING PATTERN - Cardiovascular Exam Cardiovascular Exam: REGULAR RHYTHM, +S1, +S2 - GI/Abdominal Exam GI & Abdominal Exam: Soft, Tenderness (mild RUQ tenderness). absent: Distended , Firm, Guarding, Rigid, Rebound - Neurological Exam Neurological Exam: Alert, Awake Assessment and Plan - Assessment and Plan (Free Text) Assessment: 81F with acute cholecystitis and Choledocholithiasis Plan: - patient needs ERCP with GI - GI on board - Cholecystectomy after procedure Further recs discuss with Dr. Chelita Muñiz, PGY2
--- NOTE | 2017-04-28 13:48 | CP.PCM.PCO ---
Assessment/Plan - Assessment/Plan Assessment (Free Text): Spoke with Dr. Julien, ERCP cancelled because MRCP reports no choledocholithiasis. Spoke to sx resident who has been in contact with Dr. Merlos, surgery is planned for next week Tuesday. Spoke to Dr. Liu, pt can go home and return for the surgery next week. Called pt's daughter Chika Aragon ([phone]), she is aware that pt will be discharged home today and to return on Tuesday for surgery, further instructions about surgery to be given to her by sx resident.
[2017-04-28 16:01] VITALS: BP 127/74; PULSE 70; TEMP 98; O2SAT 95
--- NOTE | 2017-04-28 17:20 | CP.PCM.PN ---
Subjective - Date & Time of Evaluation Date of Evaluation: 04/28/17 Time of Evaluation: 10:00 - Subjective Subjective: no overnight events Objective - Vital Signs/Intake and Output Vital Signs (last 24 hours): Temp Pulse Resp BP Pulse Ox 98 F 70 20 127/74 95 04/28/17 16:00 04/28/17 16:00 04/28/17 16:00 04/28/17 16:00 04/28/17 16:00 - Medications Medications: Current Medications Carbidopa/Levodopa (Sinemet) 1 tab PO TID [facility] Last Admin: 04/28/17 17:02 Dose: 1 tab Clonazepam (Klonopin) 1 mg PO Q12H [facility] Last Admin: 04/28/17 08:30 Dose: 1 mg Donepezil HCl (Aricept) 10 mg PO DAILY [facility] Last Admin: 04/28/17 08:28 Dose: 10 mg Escitalopram Oxalate (Lexapro) 10 mg PO DAILY [facility] Last Admin: 04/28/17 08:28 Dose: 10 mg Sodium Chloride (Sodium Chloride 0.9%) 500 mls @ 100 mls/hr IV .Q5H [facility] Last Admin: 04/26/17 04:23 Dose: Not Given Ciprofloxacin (Cipro 400mg/200ml Dsw) 400 mg in 200 mls @ 200 mls/hr IVPB Q12 [facility] PRN Reason: Protocol Last Admin: 04/28/17 08:23 Dose: 200 mls/hr Metronidazole (Flagyl 500mg/100ml Ns) 100 mls @ 100 mls/hr IVPB Q8 [facility] PRN Reason: Protocol Last Admin: 04/28/17 17:00 Dose: 100 mls/hr Morphine Sulfate (Morphine) 2 mg IVP Q4 PRN PRN Reason: Pain, severe (8-10) Ondansetron HCl (Zofran Inj) 4 mg IVP Q6 PRN PRN Reason: Nausea/Vomiting Valsartan (Diovan) 160 mg PO DAILY [facility] Last Admin: 04/28/17 08:28 Dose: 160 mg - Labs Labs: 04/26/17 08:36 04/27/17 10:04 PT 12.7 Seconds (9.8-13.1) 04/26/17 20:48 INR 1.1 (0.9-1.2) 04/26/17 20:48 APTT 34.1 Seconds (25.6-37.1) 04/26/17 20:48 - Head Exam Head Exam: NORMOCEPHALIC - Neck Exam Neck Exam: Normal Inspection - Respiratory Exam Respiratory Exam: Clear to Ausculation Bilateral - Cardiovascular Exam Cardiovascular Exam: REGULAR RHYTHM - GI/Abdominal Exam GI & Abdominal Exam: Soft, Normal Bowel Sounds Assessment and Plan - Assessment and Plan (Free Text) Assessment: 81 yo female with biliary colic Official MRCP reviewed and documented as negative for choledocholithiasis ERCP not indicated surgical input appreciated
== END 2017-04-28 18:30 | disposition home or self-care (01) | DRG 446 ==
LOC: H.ER 12:03 → H.ERHOLD 22:50 → H.MEDSURG1 04-26 00:54
PROVIDERS: ADMIT Internal Medicine Pulmonary Disease; ATTEND Internal Medicine Pulmonary Disease
PROC: 3E0234Z Introduction of Serum, Toxoid and Vaccine into Muscle, Percutaneous Approach (ICD-10-PCS; principal; 2017-04-26)
DX: K80.12 Calculus of gallbladder with acute and chronic cholecystitis without obstruction (principal); K83.8 Other specified diseases of biliary tract; G20 Parkinson's disease; E11.9 Type 2 diabetes mellitus without complications; F03.90 Unspecified dementia, unspecified severity, without behavioral disturbance, psychotic disturbance, mood disturbance, and anxiety; I10 Essential (primary) hypertension; E78.00 Pure hypercholesterolemia, unspecified; F41.8 Other specified anxiety disorders; M17.11 Unilateral primary osteoarthritis, right knee; M81.0 Age-related osteoporosis without current pathological fracture; J45.909 Unspecified asthma, uncomplicated; K29.70 Gastritis, unspecified, without bleeding; Z23 Encounter for immunization; Z85.038 Personal history of other malignant neoplasm of large intestine